=== PATIENT | male | born 1985 | race Caucasian/White ===

== ENCOUNTER → 2019-10-31 10:38 | Outpatient (CLI) | payer BC, SELFPAY ==
[2019-10-31 12:32] LABS: Cholesterol 251 mg/dL (140-199); HDL Cholesterol 72 mg/dL (40-60); LDL Cholesterol Calculated 153 mg/dL (<100); Triglycerides 131 mg/dL (35-150)
== END ==
PROVIDERS: PCP Student in an Organized Health Care Education/Training Program; Referring Provider Student in an Organized Health Care Education/Training Program; Visit Provider Student in an Organized Health Care Education/Training Program
DX: Z13.220 Encounter for screening for lipoid disorders (principal)
CPT/HCPCS: 36415; 80061

== ENCOUNTER → 2020-04-10 12:01 | Outpatient (CLI) | payer BC, SELFPAY ==
[2020-04-10 13:49] LABS: TSH w/ Reflex to FT4 1.01 uIU/mL (0.47-4.68)
[2020-04-10 14:08] LABS: Vitamin B12 831 pg/mL (239-931)
== END ==
PROVIDERS: PCP Student in an Organized Health Care Education/Training Program; Referring Provider Student in an Organized Health Care Education/Training Program; Visit Provider Student in an Organized Health Care Education/Training Program
DX: G62.9 Polyneuropathy, unspecified (principal); R20.2 Paresthesia of skin
CPT/HCPCS: 36415; 82607; 83036; 84443

== ENCOUNTER → 2020-04-15 08:04 | Outpatient (CLI) | payer BC, SELFPAY ==
--- NOTE | 2020-04-15 08:05 | DI.MRI.S_ITS ---
PROCEDURE: MR LUMBAR SPINE WO CON INDICATIONS: Leg parasthesia bilateral; low back pain TECHNIQUE: Noncontrast sagittal T1 spin echo and T2 fast echo, sagittal STIR, axial T1 and T2 fast spin echo through the lumbar spine. In cases with scoliosis, additional coronal T2 fast spin echo may be performed. COMPARISON: None. FINDINGS: Image quality: Excellent. Alignment and Curvature: There is normal bony alignment. Bone Marrow: Marrow is of normal overall signal. No acute vertebral body compression fractures. Spinal Cord: Normal position and appearance of the conus. Visualized distal spinal cord is unremarkable. Paraspinous Soft Tissues: No paravertebral masses. L1-L2: No spinal canal or neural foraminal stenosis. No degenerative changes of the intervertebral disc or posterior elements. L2-L3: No spinal canal or neural foraminal stenosis. No degenerative changes of the intervertebral disc or posterior elements. L3-L4: Disc bulge flattens the ventral thecal sac without mass effect upon the traversing L4 nerve roots. No neural foraminal stenosis. No degenerative changes of the posterior elements. L4-L5: Disc desiccation and height loss with diffuse disc bulge and a superimposed broad-based posterior disc protrusion combine to flatten the ventral thecal sac with no mass effect upon the traversing L5 nerve roots. Foraminal components of the disc bulge combined with facet hypertrophy to produce mild bilateral neural foraminal stenosis. There is abutment and displacement of the exiting right L4 nerve root within the foramen (series 3, image 3). L5-S1: Diffuse disc bulge with a superimposed broad-based posterior disc protrusion flattens the ventral thecal sac. Disc material displaces the [id number]-left S1 nerve roots within both subarticular zones. Foraminal components of the disc bulge combine with facet hypertrophy to produce mild bilateral neural foraminal stenosis. IMPRESSION: Degenerative changes in the lower lumbar spine worst at L4-L5. Dictated by: Gerardo Varma M.D. on 04/15/2020 at 9:11 Approved by: Gerardo Varma M.D. on 04/15/2020 at 9:15
== END ==
PROVIDERS: PCP Student in an Organized Health Care Education/Training Program; Referring Provider Student in an Organized Health Care Education/Training Program; Visit Provider Student in an Organized Health Care Education/Training Program
DX: M54.5 Low back pain (principal); M47.816 Spondylosis without myelopathy or radiculopathy, lumbar region; G62.9 Polyneuropathy, unspecified; R20.2 Paresthesia of skin
CPT/HCPCS: 72148

== ENCOUNTER → 2021-03-24 10:37 | Outpatient (CLI) | payer OTHER, SELFPAY ==
--- NOTE | 2021-03-24 | DI.RAD.S_ITS ---
PROCEDURE: XR ANKLE LT MIN 3V INDICATIONS: RIGHT ANKLE INJURY 03/17/21, PAIN, EDEMA TECHNIQUE: 3 views of the ankle were acquired. COMPARISON: None. FINDINGS: Bones: No fractures or dislocations. Ankle mortise is normally aligned. No suspicious bony lesions. Soft tissues: No tibiotalar joint effusion. Achilles tendon appears normal. IMPRESSION: No visualized acute fracture or dislocation. However, if clinical concern and/or pain persist, short interval imaging followup in 7-10 days is recommended, as occult injury cannot be definitively excluded. Dictated by: Anastasiia Gu M.D. on 03/24/2021 at 11:48 Approved by: Anastasiia Gu M.D. on 03/24/2021 at 11:48
== END ==
PROVIDERS: PCP Student in an Organized Health Care Education/Training Program; Referring Provider Physician Assistant Medical; Visit Provider Physician Assistant Medical
DX: S99.911A Unspecified injury of right ankle, initial encounter (principal); M25.571 Pain in right ankle and joints of right foot; R60.0 Localized edema; X58.XXXA Exposure to other specified factors, initial encounter; R26.89 Other abnormalities of gait and mobility
CPT/HCPCS: 73610